=== PATIENT | male | born 2005 | race Caucasian/White ===

== ENCOUNTER 2025-03-08 22:01 | Emergency (ER) | payer OTHER, SELFPAY ==
[2025-03-08 22:02] VITALS: BP 146/84; PULSE 98; RESP 18; TEMP 36.8; O2SAT 99; BMI 23.6
[2025-03-08 23:05] VITALS: BP 132/83; PULSE 76; RESP 14; TEMP 37.3; O2SAT 100
[2025-03-08] MEDS: Ketorolac 30 MG/ML Syringe IV (23:22)
[2025-03-08] MEDS: DiphenhydrAMINE 50 MG/ML Syringe 25 MG IV (23:24)
[2025-03-08] MEDS: 0.9% Normal Saline (1000mL) 1,000 ML 999 ML IV (23:29)
[2025-03-08 23:31] LABS: Hematocrit 44.3 % (40-54); Hemoglobin 16.0 g/dL (13.0-16.5); Immature Granulocytes Count 0.040 X10^3/uL (0.0-0.0); Mean Corp Hgb Conc 36.1 g/dL (32-36); Mean Corpuscular Volume 90.2 fL (80-94); Mean Platelet Vol. 9.7 fl (6.2-12.0); NRBC Flagged by Analyzer 0 % (0-5); Platelet Count 286 K/mm3 (150-450); RBC Distribution Width CV 11.9 % (11.6-14.6); RBC Distribution Width SD 39.3 fl (35.1-43.9); Red Blood Count 4.91 M/mm3 (4.6-6.2); White Blood Count 8.2 K/mm3 (4.4-11.0)
[2025-03-08 23:59] LABS: AST(SGOT) 39 U/L (<=37); Alanine Aminotransfer ALT/SGPT 74 U/L (<=46); Albumin, Serum 4.5 g/dL (3.5-5.0); Alkaline Phosphatase 81 U/L (40-129); Anion Gap 15 (5-15); BUN 11 mg/dL (4-19); BUN/Creat Ratio 12.5 RATIO (10-20); Bilirubin, Direct 0.11 mg/dL (0.00-0.30); Calcium,Total 9.6 mg/dL (7.6-11.0); Carbon Dioxide 24.4 mmol/L (21.0-32.0); Chloride 99 mmol/L (98-108); Estimated Creatinine Clearance 144.25 ml/min (50-250); Globulin 3.2 g/dL (2.2-4.2); Glucose 112 mg/dL (70-99); Lipase 16 U/L (13-75); Potassium 3.6 mmol/L (3.3-5.1)
[2025-03-09 00:02] VITALS: BP 134/70; PULSE 74; RESP 16; O2SAT 98
--- NOTE | 2025-03-09 00:26 | EX.ED.DYSGE1 ---
HPI History of Present Illness Chief Complaint: Headache Informant: patient and family Narrative Narrative: Patient is a 19-year-old male with no significant past medical history. He reports he had 1 to 2 days of headache with subjective fevers and chills generalized muscle aches and bouts of nausea and vomiting. He denies any known sick contacts. He denies any recent head injury. He states that medications are not helping his symptoms and secondary to his he presents for evaluation. [facility] Medical History no medical history Home Medications ?Medication ?Instructions ?Recorded ?Last Taken ?Type ondansetron 4 mg disintegrating 4 mg PO TID PRN nausea and 03/09/25 Unknown Rx tablet vomiting #21 tabs Allergy/AdvReac Type Severity Reaction Status Date / Time No Known Allergies Allergy Verified 03/08/25 22:02 Social History Smoking Status: Never smoker ROS ROS ED Constitutional Constitutional ED: Reports chills, fever(s) and subjective Eyes Eyes: Denies change in vision ENT ENT ED: Denies sore throat Cardiovascular Cardiovascular: Denies chest pain Respiratory/Chest Respiratory/Chest: Denies cough or dyspnea Gastrointestinal Gastrointestinal: Reports abdominal pain, nausea and vomiting; Denies diarrhea Genitourinary Genitourinary ED: Denies dysuria Musculoskeletal Musculoskeletal: Reports myalgias Integumentary Denies rash Neurologic Neurologic: Reports headache(s) Hematologic/Lymphatic Hematologic/Lymphatic: Denies easy bleeding or easy bruising EXAM Physical Exam Const Vital Signs: 03/08/25 22:02 03/08/25 23:05 03/09/25 00:02 Temperature 98.2 F 99.1 F Temperature Source Oral Oral Pulse Rate 98 76 74 Respiratory Rate 18 14 16 Blood Pressure 146/84 H 132/83 H 134/70 H Blood Pressure Mean 104 99 91 Pulse Ox 99 100 98 Oxygen Delivery Method Room Air Room Air Positive well nourished and well developed General Appearance ED: well developed; Negative for pallor HEENT Reports moist mucous membranes HEENT Narrative: Normocephalic atraumatic No tongue or lip swelling no oral lesions no airway edema or compromise No secondary findings in the posterior pharynx to suggest infection Eyes PERRL and EOMs intact bilaterally General Eye ED: Negative for scleral icterus Neck supple Neck Narrative: No nuchal rigidity or meningeal signs Resp normal respiratory effort and clear to auscultation bilaterally Cardio regular rate and regular rhythm GI non-tender, non-distended and no masses GI Narrative: Abdomen is soft and nontender with hyperactive bowel sounds. No voluntary guarding or rigidity or pulsatile mass Auscultation: hyperactive bowel sounds Palpation: soft Extremity normal to inspection Neuro oriented x3, CN's II-XII intact bilaterally and no sensory deficits noted Neuro Narrative: GCS of 15 Cranial nerves II through XII are grossly intact there are no focal neurologic deficits No pronator drift no dysmetria no truncal ataxia NIH stroke scale score of 0 Sensorium / Orientation: alert Motor Exam: strength 5/5 throughout Psych mental status grossly normal Skin no rashes or lesions noted, no wounds and skin turgor normal General Skin Exam: Negative for jaundice or pallor MDM MDM MDM Narrative Medical decision making narrative: Patient arrived to the ER with stable vitals. He reported myalgias with headache and bouts of nausea with vomiting. By exam he does not have meningeal signs. There is no obvious signs of infection in the posterior pharynx such as strep throat or peritonsillar abscess. His abdomen is soft and nonsurgical and I have low concern for appendicitis versus biliary colic versus acute pancreatitis. His history and exam is most consistent with a viral infection such as norovirus or rotavirus. I did elect to obtain basic labs based on his report of symptoms and subjective fever. There is no leukocytosis or left shift going against systemic infection. Lipase normal going against acute pancreatitis. Strep test is also negative going against underlying bacterial throat infection as a cause of his symptoms. He was given IV fluids Toradol Benadryl and Reglan and reported mild improvement of his headache. Therefore morphine and Zofran were added. On reevaluation his vitals remained stable and his abdomen soft and nonsurgical. Therefore at this time as his overall workup is negative and my concern for underlying meningitis or potential intestinal infection such as appendicitis is low I do not feel the need for further treatment and he is otherwise safe for discharge. History & Record Review Discussion w/independent historian: Patient and Family Lab Data Attestation: I reviewed the patient's lab results. Labs: Laboratory Results - last 24 hr 03/08/25 22:33 WBC 8.2 RBC 4.91 Hgb 16.0 Hct 44.3 MCV 90.2 MCH 32.6 H MCHC 36.1 H RDW Std Deviation 39.3 RDW Coeff of Vilma 11.9 Plt Count 286 MPV 9.7 Immature Gran % (Auto) 0.500 Neut % (Auto) 77.0 H Lymph % (Auto) 10.4 L Freestone % (Auto) 11.6 H Eos % (Auto) 0.1 Baso % (Auto) 0.4 Absolute Neuts (auto) 6.3 Absolute Lymphs (auto) 0.85 Nucleated RBC % 0 Sodium 138 Potassium 3.6 Chloride 99 Carbon Dioxide 24.4 Anion Gap 15 BUN 11 Creatinine 0.87 Estim Creat Clear Calc 144.25 Est GFR (MDRD) Non-Af 127 BUN/Creatinine Ratio 12.5 Glucose 112 H Calcium 9.6 Total Bilirubin 0.30 Direct Bilirubin 0.11 AST 39 H ALT 74 H Alkaline Phosphatase 81 Total Protein 7.7 Albumin 4.5 Globulin 3.2 Lipase 16 Discharge Plan Triage Chief Complaint: Headache ED Provider: Binu Stubbs Dx/Rx/DC Orders Clinical Impression: Cephalgia, Viral syndrome Instructions: ED Headache Unspecified, ED Viral Syndrome (Adult) Prescriptions: New ondansetron 4 mg tablet,disintegrating 4 mg PO TID PRN (Reason: nausea and vomiting) Qty: 21 0RF Primary Care Provider: Care Physician,No Primary Activity Restrictions/Additional Instructions: Your workup today revealed no clinically significant findings indicating your symptoms are most likely related to a virus. This will last on average 3 to 7 days. Take 600 mg / 3 pills of Advil 3-4 times a day to help control headache and pain. Use Zofran as directed to help with bouts of nausea and vomiting. Return to the ER should you have any further concerns or worsening of symptoms Print Language: Icelandic Disposition Disposition: Home, Self Care Discharge Date/Time: 03/09/25 01:10
[2025-03-09 00:46] VITALS: BP 139/71; PULSE 87; RESP 18; TEMP 36.8; O2SAT 100
== END 2025-03-09 01:10 | disposition home or self-care (01) ==
PROVIDERS: Emergency Provider Emergency Medicine; Visit Provider Emergency Medicine
DX: R51.9 Headache, unspecified (principal); B34.9 Viral infection, unspecified; R11.2 Nausea with vomiting, unspecified
CPT/HCPCS: 80048; 80076; 83690; 85025; 87651; 96361; 96374; 96375; 99284; A4216; J2405